=== PATIENT | male | born 1975 | race African-American/Black ===

== ENCOUNTER 2018-10-03 21:13 | Emergency (ER) | payer OTHER ==
[~2018-10-03] VITALS: Ht 165.1 cm; Wt 102.0 kg
[2018-10-03] MEDS ORDERED: IBUPROFEN 600MG TABLET PO STA (22:25)
[2018-10-03] MEDS ORDERED: LIDOCAINE HCL/EPINEPHRINE 1%-EPI 1:100,000 20 ML VIAL INFIL SCH (22:30)
[2018-10-03] MEDS ORDERED: BACITRACIN ZINC OINT UDPKT TOP ONE (22:30)
[2018-10-03] MEDS ORDERED: LIDOCAINE 1%/EPI 1:100,000 10 ML VIAL IJ ONE (22:30)
[2018-10-04 00:11] VITALS: BP 137/79
== END 2018-10-04 00:11 | disposition home or self-care (01) ==
LOC: ER 21:13
DX: S51.812A Laceration without foreign body of left forearm, initial encounter (principal); I10 Essential (primary) hypertension; Z89.511 Acquired absence of right leg below knee; W18.39XA Other fall on same level, initial encounter; Y93.89 Activity, other specified; Y92.89 Other specified places as the place of occurrence of the external cause; Y99.8 Other external cause status
CPT/HCPCS: 12004; 99283; J3490; Z7610

== ENCOUNTER 2018-10-05 11:06 | Emergency (ER) | payer OTHER ==
[~2018-10-05] VITALS: Ht 167.6 cm; Wt 101.0 kg
[2018-10-05 11:34] VITALS: BP 142/82
== END 2018-10-05 12:00 | disposition home or self-care (01) ==
LOC: ER 11:06
DX: Z48.00 Encounter for change or removal of nonsurgical wound dressing (principal); I10 Essential (primary) hypertension
CPT/HCPCS: 99283

== ENCOUNTER 2018-10-17 10:58 | Emergency (ER) | payer OTHER ==
[~2018-10-17] VITALS: Ht 167.6 cm; Wt 100.0 kg
[2018-10-17] MEDS ORDERED: BACITRACIN ZINC OINT UDPKT TOP ONE (12:45)
[2018-10-17 12:51] VITALS: BP 159/112
== END 2018-10-17 12:54 | disposition home or self-care (01) ==
LOC: ER 11:11
DX: Z48.02 Encounter for removal of sutures (principal)
CPT/HCPCS: 99283

== ENCOUNTER 2019-09-27 09:18 | Emergency (ER) | payer OTHER ==
[~2019-09-27] VITALS: Ht 167.6 cm; Wt 75.0 kg
[2019-09-27] MEDS ORDERED: SODIUM CHLORIDE 0.9% 1,000 ML IV ONE (09:55)
[2019-09-27] MEDS ORDERED: ACETAMINOPHEN 500MG TABLET PO ONE (10:00)
[2019-09-27] MEDS ORDERED: METOCLOPRAMIDE HCL 10MG/2ML VIAL IV ONE (10:00)
[2019-09-27] MEDS ORDERED: DIPHENHYDRAMINE 50MG/ML VIAL IV ONE (10:00)
[2019-09-27 10:26] LABS: BASOPHILS % 0.5 % (0.0-2.0); EOSINOPHILS % 2.3 % (0.0-5.0); HEMATOCRIT. 50.1 % (42.0-52.0); LYMPHOCYTES % 44.9 % (20.0-50.0); MEAN CORPUSCULAR HEMOGLOBIN 30.7 pg (28.0-32.0); MEAN CORPUSCULAR VOLUME 85.6 fL (80.0-94.0); MEAN PLATELET VOLUME 8.9 fl (7.4-10.4); MONOCYTES % 8.3 % (2.0-8.0); PLATELET 229 x1000/uL (130-400); RED BLOOD CELL COUNT 5.86 mill/uL (4.7-6.1); RED CELL DISTRIBUTION WIDTH 13.8 % (11.6-14.6)
[2019-09-27 10:34] LABS: PROTHROMBIN TIME 11.2 sec (9.6-11.0)
[2019-09-27 10:44] LABS: CHLORIDE 102 mEq/L (98-107)
[2019-09-27 12:49] VITALS: BP 150/93
== END 2019-09-27 13:04 | disposition home or self-care (01) ==
LOC: ER 09:18
DX: R51 Headache (principal); R74.0 Nonspecific elevation of levels of transaminase and lactic acid dehydrogenase [LDH]; I10 Essential (primary) hypertension; Z89.511 Acquired absence of right leg below knee
CPT/HCPCS: 36415; 70450; 80053; 85025; 85610; 96374; 96375; 99284; J1200; J2765; J7030

== ENCOUNTER 2020-02-01 23:42 | Emergency (ER) | payer MEDICAID, OTHER ==
[~2020-02-01] VITALS: Ht 167.6 cm; Wt 101.0 kg
[2020-02-01 23:53] VITALS: BP 147/99
== END 2020-02-02 02:02 | disposition home or self-care (01) ==
LOC: ER 23:42
DX: L03.113 Cellulitis of right upper limb (principal); M79.641 Pain in right hand; I10 Essential (primary) hypertension; F17.210 Nicotine dependence, cigarettes, uncomplicated; Z87.828 Personal history of other (healed) physical injury and trauma
CPT/HCPCS: 99283